=== PATIENT | female | born 1930 | race Two or more races ===

== ENCOUNTER 2019-01-27 09:56 | Inpatient (IN) | payer OTHER ==
[~2019-01-27] VITALS: Ht 157.5 cm; Wt 45.4 kg
[2019-01-27] MEDS ORDERED: ARICEPT10 MG PO (11:13)
[2019-01-27] MEDS ORDERED: TRAZODONE HCL100 MG PO (11:14)
[2019-01-27] MEDS ORDERED: DETROL LA4 MG PO (11:15)
[2019-01-27] MEDS ORDERED: CYMBALTA60 MG PO (11:15)
[2019-01-27] MEDS ORDERED: RANEXA500 MG PO (11:16)
[2019-01-27] MEDS ORDERED: BUSPIRONE HCL10 MG PO (11:16)
[2019-01-27] MEDS ORDERED: COZAAR100 MG PO (11:17)
[2019-01-27] MEDS ORDERED: PLAVIX75 MG PO (11:18)
[2019-01-27] MEDS ORDERED: COREG CR10 MG PO (11:19)
[2019-01-27] MEDS ORDERED: LEXAPRO5 MG PO (11:19)
== END 2019-01-30 10:29 | disposition home or self-care (01) | DRG 292 ==
LOC: ER 09:56 → EDBD 20:33 → MEDJ 20:33
PROVIDERS: ADMIT Internal Medicine
PROC: B246ZZZ Ultrasonography of Right and Left Heart (ICD-10-PCS; principal; 2019-01-28)
PROC: CF261ZZ Tomographic (Tomo) Nuclear Medicine Imaging of Liver and Spleen using Technetium 99m (Tc-99m) (ICD-10-PCS; 2019-01-28)
DX: I11.0 Hypertensive heart disease with heart failure (principal); D61.818 Other pancytopenia; J90 Pleural effusion, not elsewhere classified; E44.0 Moderate protein-calorie malnutrition; I50.42 Chronic combined systolic (congestive) and diastolic (congestive) heart failure; D69.49 Other primary thrombocytopenia; D72.818 Other decreased white blood cell count; D51.8 Other vitamin B12 deficiency anemias; D50.8 Other iron deficiency anemias; M25.551 Pain in right hip; M25.552 Pain in left hip; F03.90 Unspecified dementia, unspecified severity, without behavioral disturbance, psychotic disturbance, mood disturbance, and anxiety

== ENCOUNTER 2019-03-27 22:22 | Emergency (ER) | payer OTHER ==
[~2019-03-27] VITALS: Ht 160 cm; Wt 68.0 kg
[~2019-03-27 22:22] MED LIST: ARICEPT10 MG PO; BUSPIRONE HCL10 MG PO; COREG CR10 MG PO; COZAAR100 MG PO; CYMBALTA60 MG PO; DETROL LA4 MG PO; LEXAPRO5 MG PO; PLAVIX75 MG PO; RANEXA500 MG PO; TRAZODONE HCL100 MG PO
[2019-03-27] MEDS ORDERED: RANITIDINE HCL150 M1 (22:52)
== END 2019-03-28 15:48 | disposition home or self-care (01) ==
LOC: ER 22:22
DX: M79.605 Pain in left leg (principal); L03.116 Cellulitis of left lower limb